=== PATIENT | female | born 1965 | race Native Hawaiian/Other Pacific Islander ===

== ENCOUNTER 2016-12-04 13:24 | Emergency (ER) | payer MEDICAID, SELFPAY ==
[2016-12-04 13:25] VITALS: BMI 27.6
[2016-12-04] MEDS ORDERED: Iohexol 240 (50 ml) PO STA (14:29)
[2016-12-04] MEDS ORDERED: Sodium Chloride 0.9% 1,000 ML IV STA (14:29)
[2016-12-04] MEDS ORDERED: Morphine 4 MG/ML VIAL ONE (14:51)
[2016-12-04] MEDS ORDERED: Iohexol 240 (50 ml) ONE (14:51)
[2016-12-04] MEDS ORDERED: Sodium Chloride 0.9% 1,000 ML ONE (14:51)
[2016-12-04 14:52] LABS: BASO # 0.1 K/uL (0.0-0.2); BASO % 0.7 % (0.0-2.0); EOS # 0.4 K/uL (0.0-0.7); EOS % 3.7 % (0.0-4.0); HEMATOCRIT 39.5 % (34.0-47.0); LYMPH # 3.5 K/uL (1.0-4.3); LYMPH % 34.6 % (20.0-40.0); MEAN CELL VOLUME 82.3 fL (81.0-99.0); MEAN CORPUSCULAR HGB CONC 32.8 g/dL (33.0-37.0); MEAN PLATELET VOLUME 8.4 fL (7.2-11.7); MONO # 0.8 K/uL (0.0-0.8); MONO % 7.7 % (0.0-10.0); NRBC % 0.1 % (0.0-2.0); WHITE BLOOD COUNT 10.1 K/uL (4.8-10.8)
[2016-12-04 15:06] LABS: CHLORIDE 96 mmol/L (98-107); POTASSIUM 4.8 mmol/L (3.6-5.2); SODIUM 137 mmol/L (132-148)
[2016-12-04 15:08] LABS: ALB/GLOB RATIO 1.4 (1.0-2.1); ALKALINE PHOSPHATASE 71 U/L (38-126); AST/SGOT 28 U/L (14-36); BILIRUBIN,TOTAL 0.6 mg/dL (0.2-1.3); CARBON DIOXIDE 28 mmol/L (22-30); GFR AFRICAN-AMERICAN > 60; TOTAL PROTEIN 7.5 g/dL (6.3-8.3)
[2016-12-04 15:09] LABS: ALT/SGPT 25 U/L (9-52); BLOOD UREA NITROGEN 13 mg/dL (7-17); CALCIUM 9.2 mg/dl (8.6-10.4); GLUCOSE,RANDOM 212 mg/dL (65-105)
[2016-12-04 15:10] LABS: RBC URINE 47 /hpf (0-3); URINE BACTERIA RARE (<OCC); URINE BILIRUBIN NEGATIVE (NEGATIVE); URINE CALCIUM OXALATE CRYSTALS MANY /hpf (<OCC); URINE COLOR Yellow (YELLOW); URINE GLUCOSE (UA) 2+ mg/dL (Normal); URINE KETONE TRACE mg/dL (NEGATIVE); URINE PROTEIN 1+ mg/dL (NEGATIVE); WBC URINE 15 /hpf (0-5)
[2016-12-04 15:11] LABS: URINE BLOOD 3+ (NEGATIVE); URINE LEUKOCYTE ESTERASE 1+ Leu/uL (Negative)
--- NOTE | 2016-12-04 15:44 | C.PDOC ---
History Of Present Illness 51 year old female presents to the ED with complaints of left flank pain for the past several months. Patient states she went to [facility] for the same complaints and had labs with normal results. She then saw Dr. Marie who ordered a CT with contrast and scheduled an appointment for tomorrow, however the pain worsened and she now has associated vomiting. 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 Time Seen by Provider: 12/04/16 13:54 Chief Complaint (Nursing): Abdominal Pain History Per: Patient History/Exam Limitations: no limitations Onset/Duration Of Symptoms: Days Current Symptoms Are (Timing): Still Present Severity: Mild Radiation Of Pain To:: None Quality Of Discomfort: "Pain" Associated Symptoms: denies: Fever, Chills, Urinary Symptoms Abnormal Vaginal Bleeding: No Past Medical History Reviewed: Historical Data, Nursing Documentation, Vital Signs Vital Signs: Last Vital Signs Temp 97.9 F 12/04/16 17:26 Pulse 70 12/04/16 17:26 Resp 16 12/04/16 17:26 BP 146/92 H 12/04/16 17:26 Pulse Ox 97 12/04/16 18:42 - Medical History PMH: Diabetes, HTN, Hypercholesterolemia, Hypothyroidism - [facility] Procedures COLONOSCOPY (11/23/13) ESOPHAGOGASTRODUODENOSCOPY [EGD] W/CLOSED BIOPSY (11/23/13) Family History: States: Unknown Family Hx - Social History Hx Tobacco Use: No Hx Alcohol Use: No Hx Substance Use: No - Immunization History Hx Tetanus Toxoid Vaccination: No Hx Influenza Vaccination: No Hx Pneumococcal Vaccination: No Review Of Systems Except As Marked, All Systems Reviewed And Found Negative. Constitutional: Negative for: Fever, Chills Gastrointestinal: Positive for: Vomiting (resolved). Negative for: Abdominal Pain, Diarrhea Genitourinary: Positive for: Other (+Left flank pain). Negative for: Dysuria, Frequency Skin: Negative for: Rash Neurological: Negative for: Weakness, Numbness Physical Exam - Physical Exam Appears: Non-toxic, Other (+Uncomfortable) Skin: Normal Color, Warm, Dry Head: Atraumatic, Normacephalic Eye(s): bilateral: Normal Inspection Oral Mucosa: Moist Chest: Symmetrical, No Deformity Cardiovascular: Rhythm Regular, No Murmur Respiratory: Normal Breath Sounds, No Accessory Muscle Use, No Rales, No Rhonchi , No Wheezing Gastrointestinal/Abdominal: Soft, Tenderness (+Left sided abdominal tenderness) , No Distention, No Guarding, No Rebound, No Other (No active vomiting) Back: CVA Tenderness (+Left CVA tenderness) Extremity: Normal ROM Neurological/Psych: Oriented x3, Normal Speech, Normal Cognition ED Course And Treatment - Laboratory Results Result Diagrams: 12/04/16 14:41 12/04/16 14:41 O2 Sat by Pulse Oximetry: 97 (Room air) Pulse Ox Interpretation: Normal - CT Scan/US CT ABD & Pelvis w/contrast Other Rad Studies (CT/US): Read By Radiologist, Radiology Report Reviewed CT/US Interpretation: Accession No. : [id number]. Patient Name / ID : KRYS TAN / [id number]. Exam Date : 12/04/2016 16:39:12 ( Approved ). Study Comment : Sex / Age : F / 51Y. Creator : Jair Butcher MD. Dictator : Jair Butcher MD. Financial Services Intern : Auto Wrecker : Jair Butcher MD. Approver2 : Report Date : 12/04/2016 17:14:44. My Comment : . PROCEDURE: CT Abdomen and Pelvis with contrast. HISTORY: left flank pain/vomiting. COMPARISON: 12/19/2013. TECHNIQUE: Contrast dose: 100 cc Visipaque 320. Radiation dose: Total exam DLP = mGy-cm. This CT exam was performed using one or more of the following dose reduction techniques: Automated exposure control, adjustment of the mA and/or kV according to patient size, and/or use of iterative reconstruction technique. FINDINGS: LOWER THORAX : Unremarkable. LIVER: Unremarkable. No gross lesion or ductal dilatation. GALLBLADDER AND BILE DUCTS: Unremarkable. PANCREAS: Unremarkable. No gross lesion or ductal dilatation. SPLEEN: Unremarkable. ADRENALS: Unremarkable. No mass. KIDNEYS AND URETERS: Unremarkable. No hydronephrosis. No solid mass. Incidental finding(s): Bilateral simple renal cysts. Findings noted previously. VASCULATURE: Unremarkable. No aortic aneurysm. BOWEL: Unremarkable. No obstruction. No gross mural thickening. APPENDIX: Normal appendix. PERITONEUM: Unremarkable. No free fluid. No free air. LYMPH NODES: Unremarkable. No enlarged lymph nodes. BLADDER: Unremarkable. REPRODUCTIVE : Unremarkable. BONES: No acute fracture. OTHER FINDINGS: None. IMPRESSION : No significant or acute findings to account for/ related to the clinical presentation. No significant interval change compared to the prior examination(s ). Progress Note: CT ABD & Pelvis w/contrast, Blood work, and Urinalysis ordered and reviewed. Patient treated with Morphine, Zofran, and IV fluids. UA is consistant with UTI. Rocephin 1 g IV was ordered. On re-evaluation patient feels better and will be d/c home with follow up. Copies of all reports were given to the patient. Disposition - Disposition Referrals: Contreras Queen MD [Staff Provider] - Disposition: HOME/ ROUTINE Disposition Time: 18:39 Condition: STABLE Additional Instructions: Follow up with within 1-2 days. Return to Ed if feel worse. Prescriptions: Nitrofurantoin Macrocrystals [Macrobid] 1 cap PO BID #14 cap Phenazopyridine [Pyridium] 200 mg PO TID #15 tab traMADol [Ultram] 50 mg PO Q6 #20 tab Ondansetron ODT [Zofran ODT] 4 mg PO .Q4-6H PRN #20 odt PRN Reason: Nausea/Vomiting Instructions: Urinary Tract Infection in Women (ED) - Clinical Impression Clinical Impression: UTI (urinary tract infection) - PA / MALL PLANT CARETAKER / Resident Statement MD/DO has reviewed & agrees with the documentation as recorded. - Scribe Statement The provider has reviewed the documentation as recorded by the Scribe Isis Thomas. All medical record entries made by the Scribe were at my direction and personally dictated by me. I have reviewed the chart and agree that the record accurately reflects my personal performance of the history, physical exam, medical decision making, and the department course for this patient. I have also personally directed, reviewed, and agree with the discharge instructions and disposition.
[2016-12-04] MEDS ORDERED: Iodixanol 320 MG/ML 100 ML BOTTLE IV ONE (16:30)
--- NOTE | 2016-12-04 17:16 | CT ---
PROCEDURE: CT Abdomen and Pelvis with contrast HISTORY: left flank pain/vomiting COMPARISON: 12/19/2013. TECHNIQUE: Contrast dose: 100 cc Visipaque 320. Radiation dose: Total exam DLP = mGy-cm. This CT exam was performed using one or more of the following dose reduction techniques: Automated exposure control, adjustment of the mA and/or kV according to patient size, and/or use of iterative reconstruction technique. FINDINGS: LOWER THORAX: Unremarkable. LIVER: Unremarkable. No gross lesion or ductal dilatation. GALLBLADDER AND BILE DUCTS: Unremarkable. PANCREAS: Unremarkable. No gross lesion or ductal dilatation. SPLEEN: Unremarkable. ADRENALS: Unremarkable. No mass. KIDNEYS AND URETERS: Unremarkable. No hydronephrosis. No solid mass. Incidental finding(s): Bilateral simple renal cysts. Findings noted previously. VASCULATURE: Unremarkable. No aortic aneurysm. BOWEL: Unremarkable. No obstruction. No gross mural thickening. APPENDIX: Normal appendix. PERITONEUM: Unremarkable. No free fluid. No free air. LYMPH NODES: Unremarkable. No enlarged lymph nodes. BLADDER: Unremarkable. REPRODUCTIVE: Unremarkable. BONES: No acute fracture. OTHER FINDINGS: None. IMPRESSION: No significant or acute findings to account for/ related to the clinical presentation. No significant interval change compared to the prior examination(s). Incidental finding(s):
[2016-12-04 17:26] VITALS: RESP 16
[2016-12-04] MEDS ORDERED: cefTRIAXone IV 1 gm in Dextros 50 ML IVPB STA (17:49)
[2016-12-04] MEDS ORDERED: cefTRIAXone IV 1 gm in Dextros 50 ML IVPB ONE (17:58)
[2016-12-04 18:51] VITALS: BP 167/90; PULSE 71; TEMP 97.6
[2016-12-04 18:52] VITALS: O2SAT 98
== END 2016-12-04 19:30 | disposition home or self-care (01) ==
LOC: C.ER 13:24
DX: N39.0 Urinary tract infection, site not specified (principal); B96.20 Unspecified Escherichia coli [E. coli] as the cause of diseases classified elsewhere
CPT/HCPCS: 74177; 80053; 81001; 83690; 84703; 85025; 87086; 87181; 96361; 96365; 96375; 99284; J0696; J2270; J2405; J7040; Q9966; Q9967